=== PATIENT | male | born 1995 | race Two or more races ===

== ENCOUNTER 2019-06-21 16:22 | Emergency (ER) | payer OTHER ==
[2019-06-21 16:41] VITALS: BP 136/82; PULSE 83; TEMP 100.2; BMI 54.8
[2019-06-21] MEDS ORDERED: IBUPROFEN 600 MG TABLET (FP) PO ONE ×2 (17:48→17:50)
== END 2019-06-21 18:03 | disposition home or self-care (01) ==
LOC: FER 16:22
DX: M25.562 Pain in left knee (principal)
CPT/HCPCS: 73564-TC-LT-FY; 99281-25